=== PATIENT | male | born 1970 ===

== ENCOUNTER 2017-11-13 10:44 | Outpatient (RCR) | payer OTHER, SELFPAY | END 2017-11-22 | disposition home or self-care (01) | LOC: WCC 10:44 | DX: T23.2 Burn of second degree of wrist and hand (principal); T24.292 Burn of second degree of multiple sites of left lower limb, except ankle and foot; T24.2 Burn of second degree of lower limb, except ankle and foot; T24.3 Burn of third degree of lower limb, except ankle and foot; F17.200 Nicotine dependence, unspecified, uncomplicated; X03 Exposure to controlled fire, not in building or structure; K57.90 Diverticulosis of intestine, part unspecified, without perforation or abscess without bleeding | CPT/HCPCS: 99204 ==